=== PATIENT | male | born 1995 | race Caucasian/White ===

== ENCOUNTER 2018-06-17 20:31 | Emergency (ER) | payer SELFPAY ==
[~2018-06-17] VITALS: Ht 182.9 cm; Wt 104.3 kg
[2018-06-17 20:31] VITALS: BP 150/89
--- NOTE | 2018-06-17 20:43 | NUR ---
PT TRIAGED AND AMBULATED TO BED 7, URINE CUP GIVEN AT THIS TIME.
--- NOTE | 2018-06-17 20:59 | NUR ---
PT BIB SELF C/O HEAD INJURY, HEMATOMA 12/26 PAIN S/P MECHANICAL FALL FROM STANDING AT [employer] THIS EVENING. PT HAS SLURRED SPEECH, SPEAKING IN FULL SENTENCES, ADMITS TO DRINKING A 12 PACK. PUPILS PERRLA 3MM, GCS 15. Pupils equal and reactive to light bilaterally. No facial droop noted. No smile deficit noted. Speech normal for patient. Patient is alert and oriented to person, place, time and event. Bilateral hand administrative nursing supervisor equal. Bilateral foot push equal.
--- NOTE | 2018-06-17 21:15 | NUR ---
PT SENT TO CT WITH TECH VIA BED [id number]
[2018-06-17 21:52] VITALS: BP 134/80
== END 2018-06-17 21:53 | disposition home or self-care (01) ==
LOC: MED 20:31
DX: S00.83XA Contusion of other part of head, initial encounter (principal); S00.81XA Abrasion of other part of head, initial encounter; W01.0XXA Fall on same level from slipping, tripping and stumbling without subsequent striking against object, initial encounter; Y93.89 Activity, other specified; Y92.89 Other specified places as the place of occurrence of the external cause; Y99.8 Other external cause status
CPT/HCPCS: 70450; 72125; 99284